=== PATIENT | female | born 1955 | race Caucasian/White ===

== ENCOUNTER 2016-04-24 05:37 | Inpatient (IN) | payer BC ==
[~2016-04-24] VITALS: Ht 165.1 cm; Wt 90.1 kg
[~2016-04-24 05:37] MED LIST: BISO1TAB14 PO; CARI350T14 PO; IBUP200T64 PO; LEVO112T4 PO; LOSA100T6 PO; [UNRECOGNIZED DRUG - OTHER] PO
[2016-04-24] MEDS ORDERED: VANCOMYCIN PER PHARMACY MC STA (06:06)
[2016-04-24] MEDS ORDERED: LACTATED RINGERS 1,000 ML IV SCH (06:24)
[2016-04-24 06:25] VITALS: BP 141/95
[2016-04-24] MEDS ORDERED: LIDOCAINE 1%, 2ML SQ PRN (06:30)
[2016-04-24] MEDS ORDERED: VANCOMYCIN 1,600 MG in SODIUM CHLORIDE 0.9% 250 ML IV ONE (06:30)
[2016-04-24] MEDS ORDERED: MIDAZOLAM 1 MG/ML, 2ML ONE (06:52)
[2016-04-24] MEDS ORDERED: FENTANYL PF 250 MCG/5ML ONE (06:52)
[2016-04-24] MEDS ORDERED: morphine SULFATE/PF 1 MG/ML, 10ML ONE (07:07)
[2016-04-24] MEDS ORDERED: KETOROLAC 60 MG/2 ML ONE (07:07)
[2016-04-24] MEDS ORDERED: TRANEXAMIC ACID 100 MG/ML, 10ML ONE (07:08)
[2016-04-24] MEDS ORDERED: ROPIvacaine/PF 0.2%, 20 ML ONE (07:08)
[2016-04-24] MEDS ORDERED: BACITRACIN 50,000 UNIT ONE (07:08)
[2016-04-24] MEDS ORDERED: EPINEPHRINE 1 MG/ML, 1ML ONE (07:08)
[2016-04-24] MEDS ORDERED: SODIUM CHLORIDE 0.9% 50 ML ONE (07:08)
[2016-04-24] MEDS ORDERED: GLYCOPYRROLATE 0.2MG/1ML ONE (07:25)
[2016-04-24] MEDS ORDERED: PROPOFOL 10 MG/ML, 20ML ONE (07:25)
[2016-04-24] MEDS ORDERED: SUCCINYLCHOLINE 20 MG/ML, 10ML ONE (07:25)
[2016-04-24] MEDS ORDERED: ROCURONIUM 10 MG/ML ONE (07:25)
[2016-04-24] MEDS ORDERED: CEFAZOLIN 1,000 MG ONE (07:25)
[2016-04-24] MEDS ORDERED: NEOSTIGMINE 1 MG/ML, 10ML ONE (07:25)
[2016-04-24] MEDS ORDERED: ONDANSETRON 2MG/ML, 2ML ONE (07:25)
[2016-04-24] MEDS ORDERED: EPHEDRINE 50 MG/ML, 1ML ONE (07:25)
[2016-04-24] MEDS ORDERED: DEXAMETHASONE 4 MG/ML, 5ML ONE (07:25)
[2016-04-24] MEDS ORDERED: ACETAMINOPHEN 325 MG TABLET PO PRN ×2 (08:30→10:00)
[2016-04-24] MEDS ORDERED: METOCLOPRAMIDE 5 MG/ML, 2ML IV PRN (08:30)
[2016-04-24] MEDS ORDERED: hydrALAzine 20 MG/ML, 1ML IV PRN (08:30)
[2016-04-24] MEDS ORDERED: OXYcodone 5 MG/5 ML ORAL.SOL UDC PO PRN (08:30)
[2016-04-24] MEDS ORDERED: LABETALOL 5MG/ML, 20ML IV PRN (08:30)
[2016-04-24] MEDS ORDERED: ONDANSETRON 2MG/ML, 2ML IVPush PRN (08:30)
[2016-04-24] MEDS ORDERED: ACETAMINOPHEN 650 MG/20.3 ML UDC ONE (09:45)
[2016-04-24] MEDS ORDERED: HYDROmorphone 2 MG/ML, 1ML ONE (09:45)
[2016-04-24] MEDS ORDERED: ACETAMINOPHEN 325 MG TABLET ONE (09:45)
[2016-04-24] MEDS ORDERED: OXYcodone 5 MG/5 ML ORAL.SOL UDC ONE (09:46)
[2016-04-24] MEDS: HYDROmorphone 1 MG/ML, 1ML IV PRN ×3 (09:57→10:14)
[2016-04-24] MEDS ORDERED: morphine SULFATE 10 MG/ML, 1ML IVPush PRN (10:00)
[2016-04-24] MEDS ORDERED: DIPHENHYDRAMINE 50 MG CAPSULE PO PRN (10:00)
[2016-04-24] MEDS ORDERED: ZOLPIDEM 5MG TABLET PO PRN (10:00)
[2016-04-24] MEDS ORDERED: TRANEXAMIC ACID 100 MG/ML, 10ML IVPB ONE (10:00)
[2016-04-24] MEDS ORDERED: LORazepam 2 MG/ML, 1ML IVPush PRN (10:00)
[2016-04-24] MEDS ORDERED: OXYcodone/APAP 7.5/325MG TABLET PO PRN (10:00)
[2016-04-24] MEDS ORDERED: FENTANYL PF 100 MCG/2ML ONE ×2 (10:16→11:01)
[2016-04-24] MEDS: FENTANYL PF 100 MCG/2ML IV PRN ×2 (10:19→10:31)
[2016-04-24 11:44] VITALS: BP 131/76
[2016-04-24] MEDS: ONDANSETRON 2MG/ML, 2ML IVPush PRN ×2 (12:14→16:09)
[2016-04-24] MEDS: D5%-0.45% NACL 1,000 ML IV SCH ×3 (12:39→19:38)
[2016-04-24] MEDS ORDERED: TRANEXAMIC ACID 1,000 MG in SODIUM CHLORIDE 0.9% 100 ML IV ONE (13:00)
[2016-04-24] MEDS: CEFAZOLIN PMX 1GM/50ML 50 ML IVPB SCH ×2 (16:02→23:36)
[2016-04-24] MEDS: LEVOTHYROXINE 112 MCG TABLET PO SCH (16:03)
[2016-04-24] MEDS: CARISOPRODOL 350 MG TABLET PO SCH ×2 (16:03→21:33)
[2016-04-24 17:25] VITALS: BP 129/80
[2016-04-24 19:59] VITALS: BP 148/89
[2016-04-24] MEDS ORDERED: PROMETHAZINE 25 MG/ML, 1ML IM PRN (20:00)
[2016-04-24] MEDS: HYDROcodone/APAP 5/325 TABLET PO PRN (21:33)
[2016-04-24 23:52] VITALS: BP 102/52
[2016-04-25] MEDS: HYDROcodone/APAP 5/325 TABLET PO PRN ×5 (02:12→14:12)
[2016-04-25] MEDS: D5%-0.45% NACL 1,000 ML IV SCH ×3 (02:12→10:34)
[2016-04-25 05:15] VITALS: BP 100/55
[2016-04-25] MEDS ORDERED: VANCOMYCIN PMX 1GM/200ML 200 ML IVPB ONE (07:00)
[2016-04-25 07:11] VITALS: BP 121/68
[2016-04-25] MEDS: CEFAZOLIN PMX 1GM/50ML 50 ML IVPB SCH (08:02)
[2016-04-25] MEDS: CARISOPRODOL 350 MG TABLET PO SCH (08:02)
[2016-04-25] MEDS: LEVOTHYROXINE 112 MCG TABLET PO SCH (08:06)
[2016-04-25] MEDS ORDERED: LOSARTAN 50MG TABLET PO SCH (09:00)
[2016-04-25] MEDS ORDERED: BISOPROLOL HCTZ PO SCH (09:00)
[2016-04-25] MEDS ORDERED: HYDR-3240 PO (14:21)
[2016-04-25] MEDS ORDERED: ASPIRIN 325 MG TABLET EC PO SCH (17:00)
[2016-04-25] MEDS ORDERED: DOCUSATE 100 MG CAPSULE PO SCH (21:00)
== END 2016-04-25 14:43 | disposition home or self-care (01) | DRG 470 ==
LOC: ORIP 05:37 → 4NOR 11:30
PROVIDERS: ADMIT Orthopaedic Surgery; ATTEND Orthopaedic Surgery
PROC: 0SRB02Z Replacement of Left Hip Joint with Metal on Polyethylene Synthetic Substitute, Open Approach (ICD-10-PCS; principal; 2016-04-24 07:30)
DX: M16.12 Unilateral primary osteoarthritis, left hip (principal); E66.9 Obesity, unspecified; Z98.1 Arthrodesis status; Z68.33 Body mass index [BMI] 33.0-33.9, adult; Z88.5 Allergy status to narcotic agent; Z88.8 Allergy status to other drugs, medicaments and biological substances; Z91.048 Other nonmedicinal substance allergy status
CPT/HCPCS: 36415; 85018; 86850; 86900; C1713; J0171; J0690; J1100; J1170; J1885; J2250; J2274; J2405; J2550; J2704; J2710; J2795; J3010; J3370; J3490; C1776; J0330; J2060; J2270; J7050

== ENCOUNTER → 2017-11-01 | Outpatient (CLI) | payer BC ==
[~2017-11-01] MED LIST changes: +ASPI-496 PO; +HYDR-3240 PO; +LEVO125T5 PO; -LOSA100T6 PO; +LOSA100T7 PO; +LOSA50TA7 PO; +NAPR220C2 PO; +VENL75TA PO
[2017-11-01 11:33] LABS: BASOPHILS # (AUTO) 0.04 x10^3/uL (0-0.1); BASOPHILS % (AUTO) 1 % (0-1); EOSINOPHILS # (AUTO) 0.08 x10^3/uL (0-0.4); EOSINOPHILS % (AUTO) 1 % (1-7); LYMPHOCYTES # (AUTO) 2.07 x10^3/uL (1-3.4); LYMPHOCYTES % (AUTO) 34 % (22-44); MD NO; MEAN CORPUSCULAR HEMOGLOBIN 30.5 pg (27.0-34.8); MEAN CORPUSCULAR HGB CONC 33.9 g/dL (32.4-35.8); MEAN CORPUSCULAR VOLUME 89.8 fL (80-100); MEAN PLATELET VOLUME 7.4 fL (7.4-10.4); MONOCYTES # (AUTO) 0.36 x10^3/uL (0.2-0.8); MONOCYTES % (AUTO) 6 % (2-9); NEUTROPHILS # (AUTO) 3.62 x10^3/uL (1.8-6.8); NEUTROPHILS % (AUTO) 59 % (42-75); PLATELET COUNT 289 x10^3/uL (130-400); RED BLOOD COUNT 4.99 x10^6/uL (3.82-5.3); RED CELL DISTRIBUTION WIDTH 13.2 % (9.6-15.2)
[2017-11-01 11:44] LABS: ALANINE AMINOTRANSFERASE 35 U/L (12-78); ANION GAP 9 mmol/L (5-15); CALCIUM 9.5 mg/dL (8.5-10.1); CHLORIDE 105 mmol/L (98-107)
[2017-11-01 11:47] LABS: ALKALINE PHOSPHATASE 127 U/L (45-117); BILIRUBIN,TOTAL 0.3 mg/dL (0.2-1.0); TOTAL PROTEIN 8.1 g/dL (6.4-8.2)
[2017-11-01 12:06] LABS: MICROSCOPIC NOT IND
[2017-11-01 12:14] LABS: CULTURE INDICATED? NO
== END | disposition home or self-care (01) ==
LOC: STAR 10:16
PROVIDERS: ATTEND Orthopaedic Surgery
DX: Z01.818 Encounter for other preprocedural examination (principal); M16.11 Unilateral primary osteoarthritis, right hip
CPT/HCPCS: 36415; 80053; 81003; 85025; 87081; 87147; 87806; 93005; G0475

== ENCOUNTER 2018-01-21 10:39 | Inpatient (IN) | payer BC ==
[~2018-01-21] VITALS: Ht 165.1 cm; Wt 92.4 kg
[2018-01-21] MEDS ORDERED: LACTATED RINGERS 1,000 ML IV SCH (12:09)
[2018-01-21] MEDS ORDERED: MIDAZOLAM 1 MG/ML, 2ML ONE (12:17)
[2018-01-21] MEDS ORDERED: FENTANYL PF 250 MCG/5ML ONE (12:17)
[2018-01-21] MEDS ORDERED: SCOPOLAMINE PATCH, 1.5MG PATCH.TD72 TD ONE (12:36)
[2018-01-21] MEDS ORDERED: ACETAMINOPHEN 500 MG TABLET ONE ×2 (12:36)
[2018-01-21] MEDS ORDERED: ROPIvacaine/PF 0.2%, 20 ML ONE (12:36)
[2018-01-21] MEDS ORDERED: TRANEXAMIC ACID 100 MG/ML, 10ML ONE (12:36)
[2018-01-21] MEDS ORDERED: KETOROLAC 60 MG/2 ML ONE (12:36)
[2018-01-21] MEDS ORDERED: morphine SULFATE/PF 1 MG/ML, 10ML ONE (12:36)
[2018-01-21] MEDS ORDERED: GABAPENTIN 300 MG CAPSULE ONE ×2 (12:36→12:37)
[2018-01-21] MEDS ORDERED: BACITRACIN 50,000 UNIT ONE (12:37)
[2018-01-21] MEDS ORDERED: EPINEPHRINE 1 MG/ML, 1ML ONE (12:37)
[2018-01-21] MEDS ORDERED: SODIUM CHLORIDE 0.9% 100 ML ONE (12:37)
[2018-01-21] MEDS: D5%-0.45% NACL 1,000 ML IV SCH ×4 (12:56→21:09)
[2018-01-21] MEDS ORDERED: DIPHENHYDRAMINE 50 MG CAPSULE PO PRN (13:00)
[2018-01-21] MEDS ORDERED: VANCOMYCIN PMX 1GM/200ML 200 ML IVPB ONE (13:00)
[2018-01-21] MEDS ORDERED: ACETAMINOPHEN 325 MG TABLET PO PRN ×2 (13:00→14:00)
[2018-01-21] MEDS ORDERED: TRANEXAMIC ACID 1,000 MG in SODIUM CHLORIDE 0.9% 100 ML IV ONE (13:00)
[2018-01-21] MEDS ORDERED: ONDANSETRON 2MG/ML, 2ML IVPush PRN (13:00)
[2018-01-21] MEDS ORDERED: LORazepam 2 MG/ML, 1ML IVPush PRN (13:00)
[2018-01-21] MEDS ORDERED: ZOLPIDEM 5MG TABLET PO PRN (13:00)
[2018-01-21] MEDS ORDERED: OXYcodone/APAP 7.5/325MG TABLET PO PRN (13:00)
[2018-01-21] MEDS ORDERED: morphine SULFATE 10 MG/ML, 1ML IVPush PRN (13:00)
[2018-01-21] MEDS ORDERED: FENTANYL PF 100 MCG/2ML IV PRN (14:00)
[2018-01-21] MEDS ORDERED: OXYcodone 5 MG/5 ML ORAL.SOL UDC PO PRN (14:00)
[2018-01-21] MEDS ORDERED: hydrALAzine 20 MG/ML, 1ML IV PRN (14:00)
[2018-01-21] MEDS ORDERED: LABETALOL 5MG/ML, 20ML IV PRN (14:00)
[2018-01-21] MEDS ORDERED: DIAZEPAM 5 MG/ML, 2ML IVPush PRN (14:00)
[2018-01-21] MEDS ORDERED: ALBUTEROL SULFATE 2.5 MG/3 ML NPPB PRN (14:00)
[2018-01-21] MEDS ORDERED: MEPERIDINE/PF 25MG/0.5ML IVPush PRN (14:00)
[2018-01-21] MEDS ORDERED: PROMETHAZINE 25 MG/ML, 1ML IV PRN (14:00)
[2018-01-21] MEDS ORDERED: HYDROcodone/APAP 7.5-325MG/15ML UDC ONE (15:23)
[2018-01-21] MEDS ORDERED: HYDROmorphone 2 MG/ML, 1ML ONE (15:23)
[2018-01-21] MEDS: HYDROmorphone 2 MG/ML, 1ML IVPush PRN ×2 (15:25→15:50)
[2018-01-21] MEDS ORDERED: HYDROcodone/APAP 7.5-325MG/15ML UDC PO PRN (16:00)
[2018-01-21 16:50] VITALS: BP 113/80
[2018-01-21] MEDS ORDERED: HYDROmorphone 2 MG/ML, 1ML IV PRN (17:30)
[2018-01-21 18:04] VITALS: BP 120/80
[2018-01-21] MEDS: CARISOPRODOL 350 MG TABLET PO SCH (21:00)
[2018-01-21] MEDS: LOSARTAN 50MG TABLET PO SCH (21:00)
[2018-01-21] MEDS: CEFAZOLIN PMX 1GM/50ML 50 ML IVPB SCH (21:00)
[2018-01-21 23:41] VITALS: BP 97/53
[2018-01-22] VITALS (7 sets, daily range): BP systolic 82–117; BP diastolic 49–67
[2018-01-22] MEDS: LEVOTHYROXINE 125 MCG TABLET PO SCH (05:29)
[2018-01-22] MEDS: CEFAZOLIN PMX 1GM/50ML 50 ML IVPB SCH ×2 (05:29→13:25)
[2018-01-22] MEDS: HYDROCHLOROTHIAZIDE PO SCH (08:26)
[2018-01-22] MEDS: BISOPROLOL PO SCH (08:26)
[2018-01-22] MEDS: LOSARTAN 50MG TABLET PO SCH ×2 (08:26→21:00)
[2018-01-22] MEDS: VENLAFAXINE 75 MG CAP ER PO SCH (08:27)
[2018-01-22] MEDS: D5%-0.45% NACL 1,000 ML IV SCH ×4 (10:35→20:32)
[2018-01-22] MEDS ORDERED: PROPOFOL 10 MG/ML, 20ML ONE (13:06)
[2018-01-22] MEDS ORDERED: GLYCOPYRROLATE 0.2MG/1ML, 5ML ONE (13:06)
[2018-01-22] MEDS ORDERED: NEOSTIGMINE 1 MG/ML, 10ML ONE (13:06)
[2018-01-22] MEDS ORDERED: ONDANSETRON 2MG/ML, 2ML ONE (13:06)
[2018-01-22] MEDS ORDERED: DEXAMETHASONE 4 MG/ML, 1ML ONE (13:06)
[2018-01-22] MEDS ORDERED: ROCURONIUM 10MG/ML,5ML ONE (13:06)
[2018-01-22] MEDS ORDERED: CEFAZOLIN 1,000 MG ONE (13:06)
[2018-01-22] MEDS: ASPIRIN 325 MG TABLET EC PO SCH (17:08)
[2018-01-22] MEDS: CARISOPRODOL 350 MG TABLET PO SCH (20:38)
[2018-01-22] MEDS: DOCUSATE 100 MG CAPSULE PO SCH (20:38)
[2018-01-23 02:23] VITALS: BP 125/79
[2018-01-23] MEDS: LEVOTHYROXINE 125 MCG TABLET PO SCH (06:03)
[2018-01-23 07:36] VITALS: BP 125/72
[2018-01-23] MEDS: DOCUSATE 100 MG CAPSULE PO SCH (08:22)
[2018-01-23] MEDS: ASPIRIN 325 MG TABLET EC PO SCH (08:22)
[2018-01-23] MEDS: VENLAFAXINE 75 MG CAP ER PO SCH (08:22)
[2018-01-23] MEDS: HYDROCHLOROTHIAZIDE PO SCH (08:23)
[2018-01-23] MEDS: LOSARTAN 50MG TABLET PO SCH (08:23)
[2018-01-23] MEDS: BISOPROLOL PO SCH (08:23)
[2018-01-23] MEDS: D5%-0.45% NACL 1,000 ML IV SCH ×2 (11:30→15:06)
[2018-01-23 12:37] VITALS: BP 116/67
== END 2018-01-23 16:25 | disposition home or self-care (01) | DRG 470 ==
LOC: INTOOBSV 10:39 → OBSVTOIN 10:39 → ORIP 10:39 → 4NOR 16:25 → DCLOUNGE 01-23 16:09
PROVIDERS: ADMIT Orthopaedic Surgery; ATTEND Orthopaedic Surgery
PROC: 0SR90JZ Replacement of Right Hip Joint with Synthetic Substitute, Open Approach (ICD-10-PCS; principal; 2018-01-21 14:30)
DX: M16.11 Unilateral primary osteoarthritis, right hip (principal); I10 Essential (primary) hypertension; Z88.6 Allergy status to analgesic agent; Z88.5 Allergy status to narcotic agent; Z88.8 Allergy status to other drugs, medicaments and biological substances; Z91.048 Other nonmedicinal substance allergy status
CPT/HCPCS: 36415; 73501; J3490; 85018; 86850; 86900; C1713; G0378; J0171; J0690; J1100; J1170; J1885; J2250; J2274; J2405; J2704; J2710; J2795; J3010; J3370; C1776; J2060; J7120

== ENCOUNTER 2018-07-31 08:29 | Outpatient (CLI) | payer BC ==
[~2018-07-31 08:29] MED LIST changes: +LOSA100T14 PO; -LOSA100T7 PO; +LOSA50TA14 PO; -LOSA50TA7 PO
[2018-07-31 10:09] LABS: MICROSCOPIC AUTO
[2018-07-31 10:10] LABS: CULTURE INDICATED? YES
[2018-07-31 10:11] LABS: HCT (SEDRATE) 44.1 % (34.6-47.8)
[2018-07-31 10:12] LABS: BASOPHILS # (AUTO) 0.04 x10^3/uL (0-0.1); BASOPHILS % (AUTO) 1 % (0-1); EOSINOPHILS # (AUTO) 0.13 x10^3/uL (0-0.4); EOSINOPHILS % (AUTO) 2 % (1-7); LYMPHOCYTES # (AUTO) 2.07 x10^3/uL (1-3.4); LYMPHOCYTES % (AUTO) 37 % (22-44); MD NO; MEAN CORPUSCULAR HEMOGLOBIN 29.6 pg (27.0-34.8); MEAN CORPUSCULAR HGB CONC 32.7 g/dL (32.4-35.8); MEAN CORPUSCULAR VOLUME 90.5 fL (80-100); MEAN PLATELET VOLUME 7.1 fL (7.4-10.4); MONOCYTES # (AUTO) 0.35 x10^3/uL (0.2-0.8); MONOCYTES % (AUTO) 6 % (2-9); NEUTROPHILS # (AUTO) 2.95 x10^3/uL (1.8-6.8); NEUTROPHILS % (AUTO) 53 % (42-75); PLATELET COUNT 268 x10^3/uL (130-400); RED BLOOD COUNT 4.92 x10^6/uL (3.82-5.3); RED CELL DISTRIBUTION WIDTH 14.4 % (9.6-15.2)
[2018-07-31 10:23] LABS: ANION GAP 6 mmol/L (5-15); CALCIUM 8.9 mg/dL (8.5-10.1); CHLORIDE 106 mmol/L (98-107)
[2018-07-31 10:27] LABS: ALANINE AMINOTRANSFERASE 52 U/L (12-78); ALKALINE PHOSPHATASE 141 U/L (45-117); BILIRUBIN,TOTAL 0.4 mg/dL (0.2-1.0); CREATININE 0.96 mg/dL (0.55-1.02)
[2018-07-31 10:56] LABS: INTERNATIONAL NORMALIZED RATIO 0.95 (0.93-1.1)
[2018-08-05] MEDS ORDERED: TURM500C4 PO (10:30)
[2018-08-05] MEDS ORDERED: OMEG1CAP23 PO (10:30)
[2018-08-05] MEDS ORDERED: CRAN500T2 PO (10:30)
[2018-08-05] MEDS ORDERED: FOLI0.4T2 PO (10:30)
[2018-08-05] MEDS ORDERED: CHOL3000 PO (10:30)
== END 2018-07-31 23:59 | disposition home or self-care (01) ==
LOC: STAR 08:29
PROVIDERS: ATTEND Orthopaedic Surgery Orthopaedic Surgery of the Spine
DX: Z01.818 Encounter for other preprocedural examination (principal); M43.26 Fusion of spine, lumbar region; R94.31 Abnormal electrocardiogram [ECG] [EKG]
CPT/HCPCS: 36415; 71046; 80053; 81001; 83036; 85025; 85610; 85651; 85730; 87086; 93005

== ENCOUNTER 2018-08-16 06:00 | Inpatient (IN) | payer BC ==
[~2018-08-16] VITALS: Ht 165.1 cm; Wt 96.0 kg
[~2018-08-16 06:00] MED LIST changes: +CHOL3000 PO; +CRAN500T2 PO; +FOLI0.4T2 PO; +OMEG1CAP23 PO; +TURM500C4 PO
[2018-08-16 06:33] VITALS: BP 151/99
[2018-08-16] MEDS ORDERED: LACTATED RINGERS 1,000 ML IV SCH (06:40)
[2018-08-16] MEDS ORDERED: LIDOCAINE-MPF 1%, 2ML ONE (06:55)
[2018-08-16] MEDS ORDERED: VANCOMYCIN 1,000 MG ONE (07:35)
[2018-08-16] MEDS ORDERED: BUPIVACAINE/EPI 0.5% 1:200K ONE (07:35)
[2018-08-16] MEDS ORDERED: TRANEXAMIC ACID 100 MG/ML, 10ML ONE ×2 (07:35)
[2018-08-16] MEDS ORDERED: BACITRACIN 50,000 UNIT ONE (07:35)
[2018-08-16] MEDS ORDERED: THROMBIN 20,000 UNIT VIAL TP ONE (07:35)
[2018-08-16] MEDS ORDERED: FENTANYL PF 250 MCG/5ML ONE (07:52)
[2018-08-16] MEDS ORDERED: MIDAZOLAM 1 MG/ML, 2ML ONE (07:52)
[2018-08-16] MEDS ORDERED: PROPOFOL 300 ML ONE (07:59)
[2018-08-16] MEDS ORDERED: CEFAZOLIN 1,000 MG ONE ×2 (08:03→11:48)
[2018-08-16] MEDS ORDERED: EPHEDRINE 50 MG/ML, 1ML ONE (08:03)
[2018-08-16] MEDS ORDERED: OXYcodone 5 MG/5 ML ORAL.SOL UDC PO PRN (09:30)
[2018-08-16] MEDS ORDERED: LABETALOL 5MG/ML, 20ML IV PRN ×2 (09:30→14:30)
[2018-08-16] MEDS ORDERED: ALBUTEROL SULFATE 2.5 MG/3 ML NPPB PRN (09:30)
[2018-08-16] MEDS ORDERED: KETOROLAC 30 MG/1 ML IV PRN ×3 (09:30→16:00)
[2018-08-16] MEDS ORDERED: PROMETHAZINE 25 MG/ML, 1ML IV PRN (09:30)
[2018-08-16] MEDS ORDERED: hydrALAzine 20 MG/ML, 1ML IV PRN (09:30)
[2018-08-16] MEDS ORDERED: MEPERIDINE/PF 25MG/0.5ML IVPush PRN (09:30)
[2018-08-16] MEDS ORDERED: DIAZEPAM 5 MG/ML, 2ML IVPush PRN (09:30)
[2018-08-16] MEDS ORDERED: ACETAMINOPHEN 325 MG TABLET PO PRN (09:30)
[2018-08-16] MEDS ORDERED: PROPOFOL 150 ML ONE (11:27)
[2018-08-16] MEDS ORDERED: ROCURONIUM 10MG/ML,5ML ONE ×2 (11:48)
[2018-08-16] MEDS ORDERED: ONDANSETRON 2MG/ML, 2ML ONE (11:48)
[2018-08-16] MEDS ORDERED: SUCCINYLCHOLINE 20 MG/ML, 10ML ONE (11:48)
[2018-08-16] MEDS ORDERED: NEOSTIGMINE 1 MG/ML, 10ML ONE (11:48)
[2018-08-16] MEDS ORDERED: PROPOFOL 10 MG/ML, 20ML ONE (11:48)
[2018-08-16] MEDS ORDERED: GLYCOPYRROLATE 0.2MG/1ML, 5ML ONE (11:48)
[2018-08-16] MEDS ORDERED: DEXAMETHASONE 4 MG/ML, 1ML ONE (11:48)
[2018-08-16] MEDS ORDERED: HYDROmorphone PCA 30 MG/30 ML IV PRN (12:00)
[2018-08-16] MEDS: FENTANYL PF 100 MCG/2ML IV PRN ×2 (12:30→12:40)
[2018-08-16] MEDS ORDERED: FENTANYL PF 100 MCG/2ML ONE (12:30)
[2018-08-16] MEDS ORDERED: HYDROmorphone 2 MG/ML, 1ML ONE (12:30)
[2018-08-16] MEDS ORDERED: PROMETHAZINE 25 MG/ML, 1ML ONE (12:48)
[2018-08-16] MEDS: HYDROmorphone 2 MG/ML, 1ML IVPush PRN ×3 (12:55→13:10)
[2018-08-16] MEDS ORDERED: OXYcodone ORAL.CONC 20 MG/ML PO PRN (14:30)
[2018-08-16] MEDS ORDERED: DIAZEPAM 5 MG TABLET PO PRN (14:30)
[2018-08-16] MEDS ORDERED: LORazepam 1MG TABLET PO PRN (14:30)
[2018-08-16] MEDS ORDERED: HYDROmorphone 2MG TABLET PO PRN (14:30)
[2018-08-16] MEDS ORDERED: ONDANSETRON 2MG/ML, 2ML IV PRN (14:30)
[2018-08-16] MEDS ORDERED: DIPHENHYDRAMINE 50 MG/ML, 1ML IM PRN (14:30)
[2018-08-16] MEDS ORDERED: HYDROmorphone 2 MG/ML, 1ML IM PRN (14:30)
[2018-08-16] MEDS ORDERED: DIPHENHYDRAMINE 50 MG/ML, 1ML IVPush PRN (14:30)
[2018-08-16] MEDS ORDERED: KETOROLAC 30 MG/1 ML IV ONE (14:30)
[2018-08-16] MEDS ORDERED: MAGNESIUM HYDROXIDE 8%, 30ML UDC PO PRN (14:30)
[2018-08-16] MEDS ORDERED: PROMETHAZINE 25 MG/ML, 1ML IM PRN (14:30)
[2018-08-16] MEDS ORDERED: DIPHENHYDRAMINE 50 MG CAPSULE PO PRN (14:30)
[2018-08-16] MEDS ORDERED: DIAZEPAM 5 MG/ML, 2ML IV PRN (14:30)
[2018-08-16] MEDS ORDERED: BISACODYL 10 MG SUPP PR PRN (14:30)
[2018-08-16] MEDS ORDERED: ACETAMINOPHEN 500 MG TABLET PO PRN (15:00)
[2018-08-16] MEDS ORDERED: ACETAMINOPHEN 650 MG SUPP PR PRN (15:00)
[2018-08-16] MEDS ORDERED: OXYcodone IR 5MG TABLET PO PRN (15:00)
[2018-08-16] MEDS ORDERED: DEXAMETHASONE 4 MG/ML, 1ML IV PRN (15:00)
[2018-08-16] MEDS ORDERED: SODIUM CHLORIDE 0.9% 1,000 ML IV SCH (15:00)
[2018-08-16] MEDS: CEFAZOLIN PMX 1GM/50ML 50 ML IVPB SCH ×2 (15:45→23:47)
[2018-08-16] MEDS: D5%-0.9% NACL+KCL 20MEQ 1,000 ML IV SCH (15:45)
[2018-08-16] MEDS ORDERED: ZOLPIDEM 5MG TABLET PO PRN (21:00)
[2018-08-16] MEDS: LOSARTAN 50MG TABLET PO SCH (21:14)
[2018-08-16 21:22] VITALS: BP 99/56
[2018-08-17 00:50] VITALS: BP 113/50
[2018-08-17] MEDS: D5%-0.9% NACL+KCL 20MEQ 1,000 ML IV SCH ×3 (02:54→22:40)
[2018-08-17 05:07] VITALS: BP 123/62
[2018-08-17] MEDS ORDERED: LEVOTHYROXINE 100 MCG TABLET ONE (05:49)
[2018-08-17] MEDS ORDERED: LEVOTHYROXINE 25 MCG TABLET ONE (05:49)
[2018-08-17 05:50] LABS: BASOPHILS # (AUTO) 0.02 x10^3/uL (0-0.1); BASOPHILS % (AUTO) 0 % (0-1); EOSINOPHILS # (AUTO) 0.02 x10^3/uL (0-0.4); EOSINOPHILS % (AUTO) 0 % (1-7); LYMPHOCYTES # (AUTO) 1.25 x10^3/uL (1-3.4); LYMPHOCYTES % (AUTO) 19 % (22-44); MD NO; MEAN CORPUSCULAR HEMOGLOBIN 30.4 pg (27.0-34.8); MEAN CORPUSCULAR HGB CONC 33.2 g/dL (32.4-35.8); MEAN CORPUSCULAR VOLUME 91.6 fL (80-100); MEAN PLATELET VOLUME 7.4 fL (7.4-10.4); MONOCYTES # (AUTO) 0.47 x10^3/uL (0.2-0.8); MONOCYTES % (AUTO) 7 % (2-9); NEUTROPHILS # (AUTO) 4.99 x10^3/uL (1.8-6.8); NEUTROPHILS % (AUTO) 74 % (42-75); PLATELET COUNT 188 x10^3/uL (130-400); RED BLOOD COUNT 3.62 x10^6/uL (3.82-5.3); RED CELL DISTRIBUTION WIDTH 13.9 % (9.6-15.2)
[2018-08-17] MEDS: LEVOTHYROXINE 125 MCG TABLET PO SCH (05:51)
[2018-08-17 06:55] VITALS: BP 126/68
[2018-08-17] MEDS: CHOLECALCIFEROL 1,000 UNIT TABLET PO SCH (09:00)
[2018-08-17] MEDS: OMEGA-3/FISH OIL CAPSULE PO SCH (09:00)
[2018-08-17] MEDS: HCTZ PO SCH (09:00)
[2018-08-17] MEDS: BISOPROLOL PO SCH (09:00)
[2018-08-17] MEDS: LOSARTAN 50MG TABLET PO SCH ×2 (09:00→21:42)
[2018-08-17] MEDS: SENNA/DOCUSATE TABLET PO SCH (09:00)
[2018-08-17] MEDS: VENLAFAXINE 75 MG CAP ER PO SCH (09:00)
[2018-08-17] MEDS: FOLIC ACID 1 MG TABLET PO SCH (09:00)
[2018-08-17] MEDS ORDERED: KETOROLAC 30 MG/1 ML IV PRN (10:30)
[2018-08-17] MEDS ORDERED: DEXAMETHASONE 4 MG/ML, 1ML IV PRN (10:30)
[2018-08-17] MEDS ORDERED: BISACODYL 10 MG SUPP PR PRN (14:00)
[2018-08-17] MEDS ORDERED: POLYETHYLENE GLYCOL 17 GM PACKET PO PRN (14:00)
[2018-08-17] MEDS ORDERED: MAGNESIUM HYDROXIDE 8%, 30ML UDC PO PRN (14:00)
[2018-08-17] MEDS ORDERED: LACTULOSE 20 GM/30 ML UDC PO PRN (14:00)
[2018-08-17] MEDS ORDERED: MAGNESIUM CITRATE 300ML ORAL SOL PO PRN ×2 (14:00)
[2018-08-17 14:10] VITALS: BP 132/78
[2018-08-17] MEDS: ACETAMINOPHEN 500 MG TABLET PO PRN ×2 (14:42→21:43)
[2018-08-17 19:30] VITALS: BP 133/71
[2018-08-18 00:44] VITALS: BP 121/70
[2018-08-18 05:07] LABS: BASOPHILS # (AUTO) 0.01 x10^3/uL (0-0.1); BASOPHILS % (AUTO) 0 % (0-1); EOSINOPHILS % (AUTO) 0 % (1-7); LYMPHOCYTES # (AUTO) 1.42 x10^3/uL (1-3.4); LYMPHOCYTES % (AUTO) 15 % (22-44); MD NO; MEAN CORPUSCULAR HEMOGLOBIN 30.8 pg (27.0-34.8); MEAN CORPUSCULAR VOLUME 93.2 fL (80-100); MEAN PLATELET VOLUME 7.7 fL (7.4-10.4); MONOCYTES # (AUTO) 0.61 x10^3/uL (0.2-0.8); MONOCYTES % (AUTO) 6 % (2-9); NEUTROPHILS # (AUTO) 7.54 x10^3/uL (1.8-6.8); NEUTROPHILS % (AUTO) 79 % (42-75); PLATELET COUNT 185 x10^3/uL (130-400); RED BLOOD COUNT 3.83 x10^6/uL (3.82-5.3); RED CELL DISTRIBUTION WIDTH 13.7 % (9.6-15.2)
[2018-08-18] MEDS: LEVOTHYROXINE 125 MCG TABLET PO SCH (05:56)
[2018-08-18] MEDS: ACETAMINOPHEN 500 MG TABLET PO PRN ×2 (05:56→16:43)
[2018-08-18] MEDS: SENNA/DOCUSATE TABLET PO SCH (08:15)
[2018-08-18] MEDS: HCTZ PO SCH (08:17)
[2018-08-18] MEDS: FOLIC ACID 1 MG TABLET PO SCH (08:17)
[2018-08-18] MEDS: OMEGA-3/FISH OIL CAPSULE PO SCH (08:17)
[2018-08-18] MEDS: BISOPROLOL PO SCH (08:17)
[2018-08-18] MEDS: CHOLECALCIFEROL 1,000 UNIT TABLET PO SCH (08:17)
[2018-08-18] MEDS: D5%-0.9% NACL+KCL 20MEQ 1,000 ML IV SCH ×2 (08:17→18:41)
[2018-08-18] MEDS: LOSARTAN 50MG TABLET PO SCH ×2 (08:17→20:40)
[2018-08-18] MEDS: VENLAFAXINE 75 MG CAP ER PO SCH (08:17)
[2018-08-18 08:28] VITALS: BP 135/76
[2018-08-18 13:59] VITALS: BP 120/60
[2018-08-18 18:23] LABS: TROPONIN I < 0.015 ng/mL (0.000-0.045)
[2018-08-18 18:53] VITALS: BP 116/72
[2018-08-18] MEDS ORDERED: SODIUM CHLORIDE 0.9%, 500ML IVBOLUS ONE (19:00)
[2018-08-19 00:11] VITALS: BP 137/76
[2018-08-19] MEDS: ACETAMINOPHEN 500 MG TABLET PO PRN ×3 (00:14→15:11)
[2018-08-19] MEDS: D5%-0.9% NACL+KCL 20MEQ 1,000 ML IV SCH (04:45)
[2018-08-19 05:57] LABS: BASOPHILS # (AUTO) 0.02 x10^3/uL (0-0.1); BASOPHILS % (AUTO) 0 % (0-1); EOSINOPHILS # (AUTO) 0.15 x10^3/uL (0-0.4); EOSINOPHILS % (AUTO) 2 % (1-7); LYMPHOCYTES % (AUTO) 17 % (22-44); MD SCAN; MEAN CORPUSCULAR HEMOGLOBIN 30.9 pg (27.0-34.8); MEAN CORPUSCULAR HGB CONC 33.6 g/dL (32.4-35.8); MEAN CORPUSCULAR VOLUME 91.9 fL (80-100); MEAN PLATELET VOLUME 8.2 fL (7.4-10.4); MONOCYTES # (AUTO) 0.54 x10^3/uL (0.2-0.8); MONOCYTES % (AUTO) 6 % (2-9); NEUTROPHILS # (AUTO) 6.81 x10^3/uL (1.8-6.8); NEUTROPHILS % (AUTO) 76 % (42-75); PLATELET COUNT 181 x10^3/uL (130-400); RED BLOOD COUNT 3.41 x10^6/uL (3.82-5.3); RED CELL DISTRIBUTION WIDTH 13.9 % (9.6-15.2)
[2018-08-19] MEDS: LEVOTHYROXINE 125 MCG TABLET PO SCH (06:20)
[2018-08-19 06:39] VITALS: BP 147/83
[2018-08-19 08:40] VITALS: BP 143/84
[2018-08-19] MEDS: SENNA/DOCUSATE TABLET PO SCH (08:42)
[2018-08-19] MEDS: LOSARTAN 50MG TABLET PO SCH (08:43)
[2018-08-19] MEDS: BISOPROLOL PO SCH (08:46)
[2018-08-19] MEDS: CHOLECALCIFEROL 1,000 UNIT TABLET PO SCH (08:46)
[2018-08-19] MEDS: FOLIC ACID 1 MG TABLET PO SCH (08:46)
[2018-08-19] MEDS: OMEGA-3/FISH OIL CAPSULE PO SCH (08:46)
[2018-08-19] MEDS: VENLAFAXINE 75 MG CAP ER PO SCH (08:46)
[2018-08-19] MEDS: HCTZ PO SCH (08:46)
[2018-08-19 12:16] VITALS: BP 162/70
[2018-08-19] MEDS ORDERED: DIAZ5TAB4 PO (15:01)
[2018-08-19] MEDS ORDERED: HYDR2SYR PO (15:04)
== END 2018-08-19 15:34 | disposition home or self-care (01) | DRG 460 ==
LOC: ORIP 06:00 → 4NOR 13:45 → DCLOUNGE 08-19 15:23
PROVIDERS: ADMIT Orthopaedic Surgery Orthopaedic Surgery of the Spine; ATTEND Orthopaedic Surgery Orthopaedic Surgery of the Spine
PROC: 01NB0ZZ Release Lumbar Nerve, Open Approach (ICD-10-PCS; 2018-08-16)
PROC: 0QB20ZZ Excision of Right Pelvic Bone, Open Approach (ICD-10-PCS; 2018-08-16)
PROC: 4A11X4G Monitoring of Peripheral Nervous Electrical Activity, Intraoperative, External Approach (ICD-10-PCS; 2018-08-16)
PROC: 0SG00AJ Fusion of Lumbar Vertebral Joint with Interbody Fusion Device, Posterior Approach, Anterior Column, Open Approach (ICD-10-PCS; principal; 2018-08-16 08:00)
DX: M48.061 Spinal stenosis, lumbar region without neurogenic claudication (principal); M43.16 Spondylolisthesis, lumbar region; M54.16 Radiculopathy, lumbar region; I10 Essential (primary) hypertension; E03.9 Hypothyroidism, unspecified; E66.9 Obesity, unspecified; Z88.5 Allergy status to narcotic agent; Z88.8 Allergy status to other drugs, medicaments and biological substances; Z79.899 Other long term (current) drug therapy; Z68.35 Body mass index [BMI] 35.0-35.9, adult
CPT/HCPCS: 36415; 71045; 72100; 82962; 83605; 84484; 85014; 85018; 85025; 87040; 93005; C1713; G0378; J0690; J1100; J1170; J1885; J2250; J2405; J2550; J2704; J2710; J3010; J3370; C1760; C1762; C1763; C9362; J0330; J3480; J7040; J7120

== ENCOUNTER 2019-07-11 10:26 | Outpatient (CLI) | payer BC ==
[~2019-07-11 10:26] MED LIST changes: -BISO1TAB14 PO; +BISO1TAB93 PO; +DIAZ5TAB4 PO; +HYDR2SYR PO
[2019-07-11] MEDS ORDERED: DIPH25CA61 PO (11:35)
[2019-07-11] MEDS ORDERED: MELA3TAB31 PO (11:35)
[2019-07-11] MEDS ORDERED: AMLO2.5T5 PO (11:35)
[2019-07-11] MEDS ORDERED: ACET-1600 PO (11:35)
[2019-07-11 11:53] LABS: BASOPHILS # (AUTO) 0.04 x10^3/uL (0-0.1); BASOPHILS % (AUTO) 1 % (0-1); EOSINOPHILS # (AUTO) 0.13 x10^3/uL (0-0.4); EOSINOPHILS % (AUTO) 2 % (1-7); LYMPHOCYTES # (AUTO) 1.99 x10^3/uL (1-3.4); LYMPHOCYTES % (AUTO) 34 % (22-44); MD NO; MEAN CORPUSCULAR HEMOGLOBIN 30.9 pg (27.0-34.8); MEAN CORPUSCULAR HGB CONC 33.5 g/dL (32.4-35.8); MEAN CORPUSCULAR VOLUME 92.3 fL (80-100); MEAN PLATELET VOLUME 7.2 fL (7.4-10.4); MONOCYTES # (AUTO) 0.41 x10^3/uL (0.2-0.8); MONOCYTES % (AUTO) 7 % (2-9); NEUTROPHILS # (AUTO) 3.34 x10^3/uL (1.8-6.8); NEUTROPHILS % (AUTO) 57 % (42-75); PLATELET COUNT 312 x10^3/uL (130-400); RED CELL DISTRIBUTION WIDTH 14.2 % (9.6-15.2)
[2019-07-11 11:54] LABS: INTERNATIONAL NORMALIZED RATIO 0.93 (0.93-1.1); PROTHROMBIN TIME 9.9 Seconds (9.6-11.5)
[2019-07-11 12:16] LABS: ALBUMIN 3.6 g/dL (3.4-5.0); ANION GAP 6 mmol/L (5-15); CALCIUM 8.7 mg/dL (8.5-10.1); CHLORIDE 107 mmol/L (98-107)
[2019-07-11 12:18] LABS: ALANINE AMINOTRANSFERASE 28 U/L (12-78); ALKALINE PHOSPHATASE 99 U/L (45-117); BILIRUBIN,TOTAL 0.5 mg/dL (0.2-1.0); CREATININE 0.87 mg/dL (0.55-1.02); TOTAL PROTEIN 7.9 g/dL (6.4-8.2)
== END 2019-07-11 23:59 | disposition home or self-care (01) ==
LOC: STAR 10:26
PROVIDERS: ATTEND Orthopaedic Surgery
DX: Z01.818 Encounter for other preprocedural examination (principal); R94.31 Abnormal electrocardiogram [ECG] [EKG]; T84.84XA Pain due to internal orthopedic prosthetic devices, implants and grafts, initial encounter; Z96.642 Presence of left artificial hip joint
CPT/HCPCS: 36415; 80053; 83036; 85025; 85610; 85730; 87081; 93005

== ENCOUNTER 2019-07-16 09:44 | Inpatient (IN) | payer BC ==
[~2019-07-16] VITALS: Ht 165.1 cm; Wt 92.6 kg
[~2019-07-16 09:44] MED LIST changes: +ACET-1600 PO; +AMLO2.5T5 PO; +DIPH25CA61 PO; +MELA3TAB31 PO
[2019-07-16] MEDS ORDERED: LACTATED RINGERS 1,000 ML IV SCH (10:08)
[2019-07-16] MEDS ORDERED: VANCOMYCIN PER PHARMACY MC STA (10:11)
[2019-07-16 10:25] VITALS: BP 153/85
[2019-07-16] MEDS ORDERED: GABAPENTIN 300 MG CAPSULE PO ONE (10:30)
[2019-07-16] MEDS ORDERED: CHLORHEXIDINE 15 ML UDC MM ONE (10:30)
[2019-07-16] MEDS ORDERED: ACETAMINOPHEN 500 MG TABLET PO ONE (10:30)
[2019-07-16] MEDS ORDERED: VANCOMYCIN 1,900 MG in SODIUM CHLORIDE 0.9% 250 ML IV ONE (10:30)
[2019-07-16] MEDS ORDERED: LIDOCAINE-MPF 1%, 2ML ONE (10:50)
[2019-07-16] MEDS ORDERED: LIDOCAINE-MPF 1%, 2ML INFIL ONE (11:00)
[2019-07-16] MEDS ORDERED: MIDAZOLAM 1 MG/ML, 2ML ONE (11:32)
[2019-07-16] MEDS ORDERED: FENTANYL PF 100 MCG/2ML ONE ×3 (11:33→15:14)
[2019-07-16] MEDS ORDERED: KETOROLAC 60 MG/2 ML ONE (11:37)
[2019-07-16] MEDS ORDERED: TRANEXAMIC ACID 100 MG/ML, 10ML ONE ×2 (11:37)
[2019-07-16] MEDS ORDERED: SODIUM CHLORIDE 0.9% 50 ML ONE (11:38)
[2019-07-16] MEDS ORDERED: ROPIvacaine/PF 0.5%, 30 ML ONE (11:38)
[2019-07-16] MEDS ORDERED: EPINEPHRINE 1 MG/ML, 1ML ONE (11:38)
[2019-07-16] MEDS ORDERED: VANCOMYCIN 1,000 MG ONE (11:38)
[2019-07-16] MEDS ORDERED: SCOPOLAMINE 1MG PATCH TD ONE (12:13)
[2019-07-16] MEDS ORDERED: SCOPOLAMINE 1MG PATCH TD SCH (12:30)
[2019-07-16] MEDS ORDERED: SUGAMMADEX 200 MG/2 ML IVPush ONE (12:35)
[2019-07-16] MEDS ORDERED: ONDANSETRON 2MG/ML, 2ML ONE (12:35)
[2019-07-16] MEDS ORDERED: PROPOFOL 10 MG/ML, 20ML ONE (12:35)
[2019-07-16] MEDS ORDERED: VASOPRESSIN 20 UNIT/ML, 1ML ONE (12:35)
[2019-07-16] MEDS ORDERED: EPHEDRINE 50 MG/ML, 1ML ONE (12:35)
[2019-07-16] MEDS ORDERED: DEXAMETHASONE 4 MG/ML, 1ML ONE (12:35)
[2019-07-16] MEDS ORDERED: CEFAZOLIN 1,000 MG ONE (12:35)
[2019-07-16] MEDS ORDERED: PHENYLEPHRINE 10 MG/ML ONE (12:35)
[2019-07-16] MEDS ORDERED: ROCURONIUM 10 MG/ML,10ML ONE (12:35)
[2019-07-16] MEDS ORDERED: KETOROLAC 30 MG/1 ML IM ONE (13:04)
[2019-07-16] MEDS ORDERED: EPINEPHRINE 1 MG/ML, 1ML INFIL ONE (13:04)
[2019-07-16] MEDS ORDERED: ROPIvacaine/PF 0.5%, 30 ML INFIL ONE (13:04)
[2019-07-16] MEDS ORDERED: VANCOMYCIN 1,000 MG IM ONE (13:04)
[2019-07-16] MEDS ORDERED: PROMETHAZINE 25 MG/ML, 1ML IVPush PRN (13:30)
[2019-07-16] MEDS ORDERED: LORazepam 2 MG/ML, 1ML IVPush PRN (13:30)
[2019-07-16] MEDS ORDERED: KETOROLAC 30 MG/1 ML IVPush PRN (13:30)
[2019-07-16] MEDS ORDERED: OXYcodone 5 MG/5 ML ORAL.SOL UDC PO PRN (13:30)
[2019-07-16] MEDS ORDERED: MEPERIDINE/PF 25MG/0.5ML IVPush PRN (13:30)
[2019-07-16] MEDS ORDERED: MAGNESIUM HYDROXIDE 8%, 30ML UDC PO PRN (15:00)
[2019-07-16] MEDS ORDERED: SENNA/DOCUSATE TABLET PO PRN (15:00)
[2019-07-16] MEDS ORDERED: ONDANSETRON 2MG/ML, 2ML IV PRN (15:00)
[2019-07-16] MEDS ORDERED: ONDANSETRON 4 MG TABLET PO PRN (15:00)
[2019-07-16] MEDS ORDERED: ACETAMINOPHEN 650 MG/20.3 ML UDC PO PRN (15:00)
[2019-07-16] MEDS ORDERED: BISACODYL 10 MG SUPP PR PRN (15:00)
[2019-07-16] MEDS ORDERED: DIPHENHYDRAMINE 25 MG CAPSULE PO PRN (15:00)
[2019-07-16] MEDS ORDERED: ZOLPIDEM 5MG TABLET PO PRN (15:00)
[2019-07-16] MEDS ORDERED: MELATONIN 3 MG TABLET PO PRN (15:00)
[2019-07-16] MEDS ORDERED: HYDROcodone/APAP 7.5-325MG/15ML UDC ONE (15:14)
[2019-07-16] MEDS: FENTANYL PF 100 MCG/2ML IV PRN ×2 (15:16→15:22)
[2019-07-16] MEDS ORDERED: HYDROmorphone 1 MG/ML, 1ML INJ ONE (15:27)
[2019-07-16] MEDS: HYDROmorphone 1 MG/ML, 1ML INJ IVPush PRN ×2 (15:29→15:50)
[2019-07-16] MEDS ORDERED: HYDROcodone/APAP 7.5-325MG/15ML UDC PO PRN (15:30)
[2019-07-16] MEDS: HYDROcodone/APAP 5/325 TABLET PO PRN ×2 (16:36→20:38)
[2019-07-16] MEDS: CEFAZOLIN PMX 2GM/50ML 50 ML IVPB SCH (17:49)
[2019-07-16] MEDS: ASPIRIN 81 MG TABLET EC PO SCH (17:49)
[2019-07-16] MEDS: HYDROCHLOROTHIAZIDE PO SCH (17:49)
[2019-07-16] MEDS: BISOPROLOL FUMARATE PO SCH (17:49)
[2019-07-16] MEDS: NS + 20MEQ KCL 1,000 ML IV SCH (17:50)
[2019-07-16 18:48] VITALS: BP 116/80
[2019-07-16] MEDS: DOCUSATE 100 MG CAPSULE PO SCH (20:38)
[2019-07-16] MEDS ORDERED: LOSARTAN 50MG TABLET PO SCH (21:00)
[2019-07-16 23:09] VITALS: BP 132/85
[2019-07-17] MEDS: OXYcodone IR 5MG TABLET PO PRN ×3 (00:52→10:56)
[2019-07-17] MEDS: CEFAZOLIN PMX 2GM/50ML 50 ML IVPB SCH (01:30)
[2019-07-17 03:52] VITALS: BP 146/79
[2019-07-17] MEDS: ASPIRIN 81 MG TABLET EC PO SCH (05:41)
[2019-07-17] MEDS: NS + 20MEQ KCL 1,000 ML IV SCH (05:46)
[2019-07-17] MEDS ORDERED: LEVOTHYROXINE 125 MCG TABLET PO SCH (06:00)
[2019-07-17] MEDS ORDERED: DEXAMETHASONE 4 MG/ML, 1ML IVPush SCH (06:00)
[2019-07-17 07:58] VITALS: BP 130/85
[2019-07-17] MEDS: BISOPROLOL FUMARATE PO SCH (08:07)
[2019-07-17] MEDS: HYDROCHLOROTHIAZIDE PO SCH (08:07)
[2019-07-17] MEDS: DOCUSATE 100 MG CAPSULE PO SCH (08:09)
[2019-07-17] MEDS ORDERED: VENLAFAXINE 75 MG CAP ER PO SCH (09:00)
[2019-07-17] MEDS ORDERED: AMLODIPINE 2.5 MG TABLET PO SCH (09:00)
[2019-07-17] MEDS ORDERED: OXYC5TAB3 PO (10:10)
[2019-07-17] MEDS ORDERED: TRAM50TA2 PO (10:11)
[2019-07-17] MEDS ORDERED: MELO7.5T31 PO (10:11)
[2019-07-17 11:26] VITALS: BP 158/85
== END 2019-07-17 11:58 | disposition home or self-care (01) | DRG 468 ==
LOC: ORIP 09:44 → 4NE 16:43 → DCLOUNGE 07-17 11:46
PROVIDERS: ADMIT Orthopaedic Surgery; ATTEND Orthopaedic Surgery
PROC: 0SP90JZ Removal of Synthetic Substitute from Right Hip Joint, Open Approach (ICD-10-PCS; 2019-07-16)
PROC: 0SR906Z Replacement of Right Hip Joint with Oxidized Zirconium on Polyethylene Synthetic Substitute, Open Approach (ICD-10-PCS; principal; 2019-07-16 12:30)
DX: T84.84XA Pain due to internal orthopedic prosthetic devices, implants and grafts, initial encounter (principal); E66.9 Obesity, unspecified; Y83.1 Surgical operation with implant of artificial internal device as the cause of abnormal reaction of the patient, or of later complication, without mention of misadventure at the time of the procedure; F32.9 Major depressive disorder, single episode, unspecified; K21.9 Gastro-esophageal reflux disease without esophagitis; I10 Essential (primary) hypertension; E03.9 Hypothyroidism, unspecified; M21.751 Unequal limb length (acquired), right femur; Z68.34 Body mass index [BMI] 34.0-34.9, adult; Z79.899 Other long term (current) drug therapy; Z88.8 Allergy status to other drugs, medicaments and biological substances; Z88.5 Allergy status to narcotic agent; Z90.710 Acquired absence of both cervix and uterus; Z90.89 Acquired absence of other organs; Y92.098 Other place in other non-institutional residence as the place of occurrence of the external cause
CPT/HCPCS: 36415; 72170; J3490; 85014; 85018; 86850; 86900; G0378; J0171; J0690; J1100; J1170; J1885; J2250; J2405; J2704; J2795; J3010; J3370; J3480; C1713; C1776; J2370; J7050; J7120; U0001-CS